=== PATIENT | male | born 1930 | race Caucasian/White ===

== ENCOUNTER 2016-08-24 11:22 | Inpatient (IN) | payer MEDICARE, OTHER ==
[~2016-08-24] VITALS: Ht 182.9 cm; Wt 78.0 kg
[~2016-08-24 11:22] MED LIST: DECADRON-DPS4 MG PO; FLONASE 0.05% D16 GM NS; LEVAQUIN DPS500 MG PO; NORVASC5 MG PO; SURFAK DPS240 MG PO; TYLENOL DPS325 MG PO; UROXATRAL10 MG PO; VITAMIN D31000 UNIT PO; ZESTRIL DPS5 MG PO; ZYLOPRIM100 MG PO
[2016-08-27] MEDS ORDERED: ZYRTEC DPS10 MG PO (14:14)
[2016-08-27] MEDS ORDERED: DUONEB DPS3 ML IH (14:14)
--- NOTE | 2016-08-27 19:46 | HP ---
ADMIT: 08/24/2016 RM/LOC: [address] [facility] MR#: [id number] 2620 [facility] [address] [place] [id number] J[address]AN [address]GU[address]EN [address] [place] [address] History and Physical SEX: M AGE: 85 : 1930 DATE OF SERVICE: CHIEF COMPLAINT: Cough with shortness of breath. HISTORY OF PRESENT ILLNESS: Juan is a very nice 85-year-old man, who does see my partner, Dr. Syd Marley. He does have CLL (chronic lymphocytic leukemia) as well as obstructive sleep apnea on CPAP, and he does have a history of subdural hematoma. He did actually contact me using the paging service less than 24 hours ago with complaints of 4 days of cough, increased shortness of breath. I recommended ER at that time. However, he wished to forego this as he had recently been in the hospital in June. He did have an albuterol inhaler at home that was his [id number]'s, which he did use, found out that it dramatically improved his symptoms. Unfortunately, we do not have a 24-hour pharmacy and we were unable to get them any further medication intervention until approximately noon today. However, prior to the pharmacy opening, he did just not feel well and did have severe weakness to the point he could not even walk. Therefore, he brought him into the ER. He was seen by Dr. Richardsno, initiated on Levaquin as well as bronchodilator therapy. Chest x- ray was obtained. It did not have a pneumonia. However, clinically, he is febrile, he has increased cough, increased hypoxia. Clinically, he is consistent with a community-acquired pneumonia. He is admitted to my service. I see him at his bedside in room 501, and I endorse this above history. PAST MEDICAL HISTORY: 1. Chronic lymphocytic leukemia. 2. History of subdural hematoma. 3. Obstructive sleep apnea on the CPAP. 4. Gout. 5. Allergies. 6. Urinary frequency. MEDICATIONS: 1. Uroxatral. 2. Zyrtec. 3. Dexamethasone. 4. Multivitamins. 5. Allopurinol. ALLERGIES: PENICILLIN AND AMLODIPINE. FAMILY HISTORY: Mother with coronary artery disease. Father and brother with CVA. SOCIAL HISTORY: He does not drink or smoke. He does not do drugs. He is a quinn. He lives at home with his . He has a very supportive son and [id number]. He does try to avoid occupational exposures. However, he has had some in the past from a pulmonary standpoint. REVIEW OF SYSTEMS: Complete review of systems reviewed per HPI. ADMIT: 08/24/2016 RM/LOC: 501 [facility] MR#: [id number] [address] [id number] JUAN NGUYEN [address] [place] [address] History and Physical SEX: M AGE: 85 : 1930 PHYSICAL EXAMINATION: VITAL SIGNS: Blood pressure 131/69, pulse is 71, respiratory rate is 20, temperature is 100.1, 95% on 2 L. GENERAL: He is alert and oriented x3. No acute distress now on the supplemental oxygen. HEENT: Normocephalic, atraumatic. Eyes, extraocular muscles intact. Pupils equal and responsive to light. His mucous membranes are dry. NECK: Supple. HEART: Rate is now 71. He was tachycardic previously in the ER. LUNGS: Coarse rhonchi bilaterally. ABDOMEN: Soft, nontender. EXTREMITIES: No clubbing or cyanosis. He does have some edema of his lower extremities. However, he does not appear to be volume overloaded in essence. I am suspicious this may be secondary to nutrition and dependent venous stasis. LABORATORY AND X-RAY DATA: Blood cultures are drawn and pending. Influenza A and B negative. Lactic acid is 1.3. Sodium is 139, potassium is 4.4, chloride is 105, bicarb is 23, BUN is 29, creatinine is 1.2, glucose 106, calcium is 7.7, phosphorus 3.4. Total bilirubin is 1.8, total protein is 6.2, albumin is 2.8, alkaline phosphatase 55, AST is 16, ALT is 19, mag is 1.9, troponin is less than 0.021, INR is 1.18. White blood cells are 31.5, platelets are 278. Hemoglobin is 10.1. CT without contrast, postoperative changes. Procalcitonin is 3.96. Chest x-ray is mild left lung base atelectasis. ASSESSMENT AND PLAN: 1. Hypoxic respiratory failure. 2. Sepsis. 3. Community-acquired pneumonia. 4. Chronic lymphocytic leukemia. 5. Anemia. 6. Thrombocytopenia. 7. Environmental allergies. 8. Obstructive sleep apnea on CPAP. I will go ahead and admit him to inpatient service. He has gotten a dose of IV Levaquin. We will put him on 500 p.o. Levaquin daily. We will go ahead and ADMIT: 08/24/2016 RM/LOC: 501 [facility] MR#: [id number] [address] [place] [id number] [facility] JUAN [address] [place] [address] History and Physical SEX: M AGE: 85 : 1930 place him on a pulmonary toilet with DuoNebs and EzPAP as well as Mucomyst as he does have some thicker secretions. Continue fluid resuscitation, add normal saline at 100 mL an hour. I will place him on some codeine and guaifenesin for his cough. He is on chronic dexamethasone. We will stop that and put him on some stress dose steroids and hydrocortisone 100 mg IV q.8, and we will also maintain him on his Uroxatral. I will place him on home CPAP. He does not really know what his settings are, at this point at 5 to 20 auto-titrating CPAP, and we will place him on some SCD's and BELA hose for prophylaxis. He wished to be a full code. I discussed the plan with the patient, who expressed understanding, was in agreement, and had no further questions. Jhon Darnell MD/ erik JOB #: [id number] CC: Jhon Darnell, Attending Physician Syd Marley, Family Physician
--- NOTE | 2016-08-28 14:16 | DS ---
ADMIT: 08/24/2016 RM/LOC: 501 [facility] MR#: [id number] [address] [address] JUAN NGUYEN [address] [place] [address] Discharge Summary SEX: M AGE: 85 : 1930 ADMISSION DATE: 08/24/2016 DISCHARGE DATE: 08/26/2016 CONSULTATIONS: None. PROCEDURES: None. FINAL DIAGNOSES: 1. RSV (respiratory syncytial virus) pneumonitis. 2. CLL (chronic lymphocytic leukemia). 3. Recent fall with subdural hematoma, status post evacuation. 4. 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 HOSPITAL COURSE: The patient was admitted on the with cough, fever, and wheeze. Lewis to be possible pneumonia. Started on broad-spectrum antibiotics. Ultimately showed RSV on his evaluation. Lewis much improved at time of discharge. He was on bronchodilators and steroids. His antibiotics were stopped after it was found to be viral. He felt safe and stable for discharge to home in much improved state. DISCHARGE INSTRUCTIONS: Please see discharge MAR, which I fully reviewed. Please see discharge instructions. He will see me back in 7-10 days in clinic. Follow up with Oncology and Neurosurgery as previously planned. Syd Marley MD/ melodie JOB #: [id number] CC: Jhon Darnell MD, Attending Physician Syd Marley MD, Family Physician
--- NOTE | 2016-09-12 23:34 | ER ---
ADMIT: 08/24/2016 RM/LOC: 501 [facility] MR#: [id number] ACC#: [id number] [facility] [address] [place] [phone] JUAN NGUYEN [address] [place] [address] Emergency Room Report SEX: M AGE: 85 : 1930 DATE: 08/24/2016 CHIEF COMPLAINT: Cough, shortness of breath, and some slurred speech. HISTORY OF PRESENT ILLNESS: The patient is an 85-year-old gentleman who has a recent history of a subdural hematoma that occurred just over 2 months ago. He had extended hospital stay at that time and is currently living at home with his . He states that over the past 4 to 5 days, he has had increasing cough and feeling generally weak. He does note that his speech has sounded a little slurred for the past couple of days and his can attest to that. He has no new numbness, tingling, or weakness in any extremity. He has had a fever and some chills. The patient also notes he has had some congestion and sinus drainage. REVIEW OF SYSTEMS: A 10-point review of systems is done and otherwise negative except as in HPI. PAST MEDICAL HISTORY: Significant for recent subdural hematoma, CLL, gout. PAST SURGICAL HISTORY: He had a left frontal temporal craniotomy done for his recent subdural. MEDICATIONS: See nurse's note. He is on dexamethasone at this time. ALLERGIES: PENICILLIN. SOCIAL HISTORY: He lives at home with his . Denies smoking, drug, or alcohol use. PHYSICAL EXAMINATION: See T-sheet for complete physical exam. RESPIRATORY: He is not in respiratory distress. He is not tachypneic. He does have coarse breath sounds throughout but decent air movement. NEUROLOGIC: Exam shows he does have some slight slurred speech, but he has no other focal findings I can appreciate. LABORATORY AND X-RAY DATA: His white count is 31.5, hemoglobin is 10.1, platelets 278. Chemistries are unremarkable, but he does have a slightly elevated BUN of 29. Cardiac enzymes are negative x1. INR is 1.18. Lactic acid is 1.3. Procalcitonin is 3.96. Chest x-ray does not show an obvious infiltrate. CT head shows no acute intracranial findings, but he does have sinusitis. EKG shows sinus rhythm with a right bundle branch block and a rate of 77. ADMIT: 08/24/2016 RM/LOC: 501 [facility] MR#: [id number] [address] [address] JUAN GNUYEN [address] [place] [address] Emergency Room Report SEX: M AGE: 85 : 1930 EMERGENCY DEPARTMENT COURSE: Based on patient's fever, shortness of breath, and hypoxia, I am concerned of pneumonia. I do not see an obvious pneumonia on his chest x-ray, but clinically he does appear to have pneumonia. We will get him started on an IV antibiotic, and due to the fact he is requiring 2 L of oxygen to keep his sats in the mid 90s, we will plan on admitting the patient at this time. He does not normally have any oxygen requirements. I spoke to Dr. Darnell, who will be admitting the patient with a diagnosis of: 1. Pneumonia. 2. Sinusitis. 3. Hypoxia. 4. Cough. 5. Fever. Ky Richardson MD/ erik JOB #: [id number] CC: Jhon Darnell MD, Attending Physician Syd Marley MD, Family Physician
== END 2016-08-26 15:53 | disposition home or self-care (01) | DRG 871 ==
LOC: ER 11:22 → 5MS 14:25
PROVIDERS: ADMIT Internal Medicine
DX: A41.9 Sepsis, unspecified organism (principal); J12.1 Respiratory syncytial virus pneumonia; J96.91 Respiratory failure, unspecified with hypoxia; C91.10 Chronic lymphocytic leukemia of B-cell type not having achieved remission; D69.6 Thrombocytopenia, unspecified; J32.9 Chronic sinusitis, unspecified; F07.81 Postconcussional syndrome; D64.9 Anemia, unspecified; R47.81 Slurred speech; R09.02 Hypoxemia; G47.33 Obstructive sleep apnea (adult) (pediatric); M10.9 Gout, unspecified; R35.0 Frequency of micturition; Z82.49 Family history of ischemic heart disease and other diseases of the circulatory system; Z91.81 History of falling